=== PATIENT | female | born 1980 | race Caucasian/White ===

== ENCOUNTER 2016-10-27 19:13 | Inpatient (IN) | payer MEDICAID ==
[~2016-10-27] VITALS: Ht 165.1 cm; Wt 83.7 kg
[~2016-10-27 19:13] MED LIST: CALC200T10 PO; FOLI-17 PO; GEMF600T3 PO; GUAI5SYR PO; LEVO500T8 PO; LORA-446 PO; METR500T PO; PHOS250T3 PO; THIA100T6 PO; TRAM50TA2 PO
[2016-10-27] MEDS ORDERED: SODIUM CHLORIDE FLUSH 10ML SYR IVF ONE ×2 (20:00→21:30)
[2016-10-27 20:09] LABS: ASPARTATE AMINO TRANSFERASE 206 U/L (15-37); BLOOD UREA NITROGEN 8 mg/dL (7-18)
[2016-10-27 20:55] LABS: DIFF TOTAL CELLS COUNTED 100 CELL DIFF
[2016-10-27] MEDS ORDERED: SODIUM BICARBONATE 4.2%, 5ML ONE (20:58)
[2016-10-27] MEDS ORDERED: LIDOCAINE 1%, 20ML ONE (20:58)
[2016-10-27 20:59] LABS: ANISOCYTOSIS 1+; POLYCHROMASIA 1+
[2016-10-27 21:01] LABS: LARGE PLATELETS 1+; MONOS WITH VACUOLES 1+
[2016-10-27 21:02] LABS: VERIFY COUNTS? YES
[2016-10-27 21:15] LABS: ICTOTEST POSITIVE
[2016-10-27] MEDS ORDERED: SODIUM CHLORIDE 0.9% 1,000 ML IV ONE (21:21)
[2016-10-27] MEDS ORDERED: CEFTRIAXONE PMX 1GM/50ML 50 ML IVPB ONE (21:30)
[2016-10-27] MEDS ORDERED: SODIUM CHLORIDE 0.9% 1,000ML IVBOLUS ONE (21:30)
[2016-10-27] MEDS ORDERED: CEFTRIAXONE PMX 1GM/50ML 50 ML ONE (22:43)
[2016-10-27] MEDS ORDERED: POLYETHYLENE GLYCOL 17 GM PACKET PO PRN (23:00)
[2016-10-27] MEDS ORDERED: PHYTONADIONE 10 MG in SODIUM CHLORIDE 0.9% 50 ML IV ONE (23:00)
[2016-10-27] MEDS ORDERED: LABETALOL 5MG/ML, 20ML IV PRN (23:00)
[2016-10-27] MEDS ORDERED: BISACODYL 10 MG SUPP PR PRN (23:00)
[2016-10-27] MEDS ORDERED: DOCUSATE 100 MG CAPSULE PO PRN (23:00)
[2016-10-27] MEDS ORDERED: HEPARIN 5,000 UNITS/ML, 1ML SQ SCH (23:00)
[2016-10-28] MEDS: CEFTRIAXONE PMX 2GM/50ML 50 ML IV SCH ×2 (01:49→22:42)
[2016-10-28] MEDS: prednisOLONE 15 MG/5 ML ORAL SOLN PO SCH ×2 (01:50→07:50)
[2016-10-28] MEDS: HEPARIN 5,000 UNITS/ML, 1ML SQ SCH ×3 (01:50→17:14)
[2016-10-28] MEDS: NS + 20MEQ KCL 1,000 ML IV SCH ×4 (01:50→19:44)
[2016-10-28 02:06] VITALS: BP 101/63
[2016-10-28] MEDS: ONDANSETRON ODT 4 MG PO PRN ×2 (03:09→16:11)
[2016-10-28 03:10] VITALS: BP 104/74
[2016-10-28] MEDS ORDERED: OXYcodone IR 5MG TABLET PO PRN (03:30)
[2016-10-28 05:39] LABS: HEMOGLOBIN 11.5 g/dL (11.7-16.4)
[2016-10-28 06:19] LABS: ASPARTATE AMINO TRANSFERASE 169 U/L (15-37); BLOOD UREA NITROGEN 8 mg/dL (7-18)
[2016-10-28 07:16] VITALS: BP 106/70
[2016-10-28 07:17] LABS: DIFF TOTAL CELLS COUNTED 100 CELL DIFF
[2016-10-28 07:19] LABS: ANISOCYTOSIS 1+; POLYCHROMASIA 1+; VERIFY COUNTS? YES
[2016-10-28] MEDS: FOLIC ACID 1 MG TABLET PO SCH (07:50)
[2016-10-28] MEDS: THIAMINE 100MG TABLET PO SCH (07:50)
[2016-10-28 09:39] LABS: HEPATITIS C VIRUS ANTIBODY Nonreactive (Nonreactive)
[2016-10-28] MEDS ORDERED: POTASSIUM CHLORIDE 10% 40 MEQ/30 ML UDC PO ONE (10:00)
[2016-10-28 12:30] VITALS: BP 105/66
[2016-10-28 12:48] LABS: CELLS COUNTED 24; DILUTION 1; WBC SQUARES COUNTED 3
[2016-10-28 20:02] VITALS: BP 110/72
[2016-10-28] MEDS: TRAZODONE 50MG TABLET PO PRN (23:14)
[2016-10-29] MEDS ORDERED: LABETALOL 5MG/ML, 20ML IV PRN (01:31)
[2016-10-29] MEDS: NS + 20MEQ KCL 1,000 ML IV SCH ×4 (02:00→20:28)
[2016-10-29] MEDS: HEPARIN 5,000 UNITS/ML, 1ML SQ SCH ×3 (02:06→17:52)
[2016-10-29 05:16] VITALS: BP 105/68
[2016-10-29 05:28] LABS: BLOOD UREA NITROGEN 10 mg/dL (7-18)
[2016-10-29 05:30] LABS: HEMOGLOBIN 11.5 g/dL (11.7-16.4)
[2016-10-29 05:32] LABS: ASPARTATE AMINO TRANSFERASE 85 U/L (15-37)
[2016-10-29 06:01] LABS: DIFF TOTAL CELLS COUNTED 100 CELL DIFF
[2016-10-29 06:03] LABS: ANISOCYTOSIS 1+; VERIFY COUNTS? YES
[2016-10-29 06:04] LABS: POLYCHROMASIA 1+
[2016-10-29 06:55] VITALS: BP 110/73
[2016-10-29] MEDS: prednisOLONE 15 MG/5 ML ORAL SOLN PO SCH (08:00)
[2016-10-29] MEDS: THIAMINE 100MG TABLET PO SCH (08:04)
[2016-10-29] MEDS: FOLIC ACID 1 MG TABLET PO SCH (08:04)
[2016-10-29 12:30] VITALS: BP 106/72
[2016-10-29] MEDS ORDERED: OXYcodone IR 5MG TABLET PO PRN (14:57)
[2016-10-29] MEDS ORDERED: MORPHINE SULFATE 4 MG/ML, 1ML IVPush PRN (15:00)
[2016-10-29] MEDS ORDERED: ONDANSETRON 2MG/ML, 2ML IVPush PRN (15:00)
[2016-10-29] MEDS ORDERED: OXYcodone/APAP 5/325MG TABLET PO PRN (15:00)
[2016-10-29 19:30] VITALS: BP 104/69
[2016-10-29] MEDS: TRAZODONE 50MG TABLET PO PRN (23:20)
[2016-10-29] MEDS: CEFTRIAXONE PMX 2GM/50ML 50 ML IV SCH (23:20)
[2016-10-30 00:27] VITALS: BP 100/67
[2016-10-30] MEDS: NS + 20MEQ KCL 1,000 ML IV SCH (02:50)
[2016-10-30] MEDS: HEPARIN 5,000 UNITS/ML, 1ML SQ SCH ×3 (02:50→18:11)
[2016-10-30 06:30] VITALS: BP 96/62
[2016-10-30 06:59] LABS: HEMOGLOBIN 11.5 g/dL (11.7-16.4)
[2016-10-30 07:02] LABS: ASPARTATE AMINO TRANSFERASE 123 U/L (15-37); BLOOD UREA NITROGEN 11 mg/dL (7-18)
[2016-10-30 07:25] LABS: DIFF TOTAL CELLS COUNTED 100 CELL DIFF
[2016-10-30 07:27] LABS: ANISOCYTOSIS 1+; TARGET CELLS 1+; VERIFY COUNTS? YES
[2016-10-30 07:28] LABS: OVALOCYTES 1+
[2016-10-30] MEDS: THIAMINE 100MG TABLET PO SCH (08:04)
[2016-10-30] MEDS: FOLIC ACID 1 MG TABLET PO SCH (08:04)
[2016-10-30 12:55] VITALS: BP 109/73
[2016-10-30 18:44] VITALS: BP 116/75
[2016-10-30] MEDS: CEFTRIAXONE PMX 2GM/50ML 50 ML IV SCH (22:47)
[2016-10-30] MEDS: TRAZODONE 50MG TABLET PO PRN (22:47)
[2016-10-31 01:17] VITALS: BP 119/70
[2016-10-31] MEDS: HEPARIN 5,000 UNITS/ML, 1ML SQ SCH ×2 (01:29→09:02)
[2016-10-31 06:03] LABS: BLOOD UREA NITROGEN 8 mg/dL (7-18)
[2016-10-31 06:06] LABS: ASPARTATE AMINO TRANSFERASE 209 U/L (15-37)
[2016-10-31 06:34] VITALS: BP 99/62
[2016-10-31] MEDS ORDERED: FURO20TA3 PO (08:42)
[2016-10-31] MEDS ORDERED: SPIR25TA PO (08:42)
[2016-10-31] MEDS ORDERED: TRAZ50TA18 PO (08:42)
[2016-10-31] MEDS ORDERED: CEFD300C2 PO (08:43)
[2016-10-31] MEDS: THIAMINE 100MG TABLET PO SCH (08:59)
[2016-10-31] MEDS: FOLIC ACID 1 MG TABLET PO SCH (08:59)
[2016-10-31] MEDS ORDERED: SPIRONOLACTONE 25 MG TABLET PO SCH (09:00)
[2016-10-31] MEDS ORDERED: FUROSEMIDE 20 MG TABLET PO SCH (09:00)
[2016-10-31] MEDS ORDERED: LIDOCAINE 1%, 20ML ONE (09:37)
[2016-10-31] MEDS ORDERED: SODIUM BICARBONATE 4.2%, 5ML ONE (09:37)
[2016-10-31 10:56] LABS: CYTOLOGY BODY FLUID RECD INTO PATHOLOGY; CYTOLOGY BODY FLUID SOURCE ASCITES FLUID
[2016-10-31 12:34] VITALS: BP 107/77
[2016-10-31 12:42] VITALS: BP 114/78
[2016-10-31 16:58] LABS: ANA SCREEN NEGATIVE (Negative)
[2016-10-31 17:06] LABS: HEPATITIS C PCR QUANTITATION HCV Not Detected IU/mL (.)
== END 2016-10-31 15:28 | disposition home or self-care (01) | DRG 871 ==
LOC: ED 19:41 → EDIP 22:16 → 4EST 23:24 → DCLOUNGE 10-31 14:57
PROVIDERS: ADMIT Internal Medicine; ATTEND Internal Medicine
PROC: 0T9B70Z Drainage of Bladder with Drainage Device, Via Natural or Artificial Opening (ICD-10-PCS; 2016-10-27)
PROC: 0W9G3ZZ Drainage of Peritoneal Cavity, Percutaneous Approach (ICD-10-PCS; principal; 2016-10-28)
PROC: 0W9G3ZZ Drainage of Peritoneal Cavity, Percutaneous Approach (ICD-10-PCS; 2016-10-31)
DX: A41.9 Sepsis, unspecified organism (principal); K85.90 Acute pancreatitis without necrosis or infection, unspecified; D68.4 Acquired coagulation factor deficiency; N17.9 Acute kidney failure, unspecified; E87.1 Hypo-osmolality and hyponatremia; N10 Acute pyelonephritis; K70.31 Alcoholic cirrhosis of liver with ascites; K70.11 Alcoholic hepatitis with ascites; E87.6 Hypokalemia; E88.09 Other disorders of plasma-protein metabolism, not elsewhere classified; F41.9 Anxiety disorder, unspecified; Z83.3 Family history of diabetes mellitus; Z98.51 Tubal ligation status
CPT/HCPCS: 36415; 49083; 71010; 74020; 76700; 80053; 80074; 80307; 81001; 82042; 82103; 82140; 82247; 82248; 82390; 83516; 83605; 83615; 83690; 83735; 84145; 84439; 84443; 84703; 85025; 85610; 85730; 86038; 86376; 87040; 87070; 87086; 87205; 87522; 88112; 88305; 89051; 93005; 99291; J0696; J1644; J3430; J3480; J3490; Q0162; J7030; J7510

== ENCOUNTER 2017-01-29 09:36 | Inpatient (IN) | payer MEDICAID ==
[~2017-01-29] VITALS: Ht 160 cm; Wt 67.5 kg
[~2017-01-29 09:36] MED LIST changes: +CEFD300C37 PO; +FURO20TA3 PO; +SPIR25TA PO; +TRAZ50TA18 PO
[2017-01-29] MEDS ORDERED: PANTOPRAZOLE 80 MG in SODIUM CHLORIDE 0.9% 100 ML IV SCH (09:56)
[2017-01-29] MEDS ORDERED: SODIUM CHLORIDE 0.9% 1,000 ML IV ONE (09:56)
[2017-01-29] MEDS ORDERED: PANTOPRAZOLE 80 MG in SODIUM CHLORIDE 0.9% 50 ML IVPB ONE (09:56)
[2017-01-29] MEDS ORDERED: SODIUM CHLORIDE FLUSH 10ML SYR IVF ONE (10:00)
[2017-01-29] MEDS ORDERED: SODIUM CHLORIDE 0.9% 1,000ML IVBOLUS ONE ×2 (10:00→11:30)
[2017-01-29] MEDS ORDERED: LORazepam 2 MG/ML, 1ML ONE ×2 (10:16→12:44)
[2017-01-29] MEDS ORDERED: ONDANSETRON 2MG/ML, 2ML ONE ×3 (10:26→15:03)
[2017-01-29] MEDS ORDERED: PLEASE ENTER HEIGHT AND WEIGHT MC SCH (10:30)
[2017-01-29] MEDS ORDERED: LORazepam 2 MG/ML, 1ML IVPush ONE (10:30)
[2017-01-29 10:34] LABS: ASPARTATE AMINO TRANSFERASE 67 U/L (15-37); BLOOD UREA NITROGEN 13 mg/dL (7-18)
[2017-01-29 10:42] LABS: ANISOCYTOSIS 1+; OVALOCYTES 1+
[2017-01-29] MEDS ORDERED: SODIUM CHLORIDE 0.9% 1,000 ML IV SCH (12:26)
[2017-01-29] MEDS ORDERED: morphine SULFATE 10 MG/ML, 1ML IVPush PRN (12:30)
[2017-01-29] MEDS ORDERED: PROMETHAZINE 25 MG/ML, 1ML IM PRN (12:30)
[2017-01-29] MEDS: ONDANSETRON 2MG/ML, 2ML IVPush PRN ×2 (12:47→21:15)
[2017-01-29] MEDS: LORazepam 2 MG/ML, 1ML IVPush PRN ×2 (12:48→18:09)
[2017-01-29] MEDS: NS + 20MEQ KCL 1,000 ML IV SCH ×2 (13:00→17:22)
[2017-01-29 14:06] VITALS: BP 107/68
[2017-01-29 14:25] VITALS: BP 107/68
[2017-01-29] MEDS ORDERED: OCTREOTIDE 50 MCG/ML, 1ML (0.05MG/ML) IVPush ONE (14:30)
[2017-01-29] MEDS ORDERED: OCTREOTIDE 500 MCG in SODIUM CHLORIDE 0.9% 249 ML IV SCH (15:00)
[2017-01-29] MEDS ORDERED: OCTREOTIDE 100MCG/ML, 1ML (0.1MG/ML) IV ONE (15:00)
[2017-01-29] MEDS: CIPROFLOXACIN/PMX 400MG/200ML 200 ML IV SCH (15:00)
[2017-01-29] MEDS ORDERED: PROPOFOL 10 MG/ML, 20ML ONE (15:03)
[2017-01-29 16:52] VITALS: BP 115/58
[2017-01-30] MEDS: LORazepam 2 MG/ML, 1ML IVPush PRN ×3 (00:06→20:44)
[2017-01-30 01:13] VITALS: BP 108/69
[2017-01-30] MEDS: NS + 20MEQ KCL 1,000 ML IV SCH (01:26)
[2017-01-30] MEDS: CIPROFLOXACIN/PMX 400MG/200ML 200 ML IV SCH ×2 (02:06→15:08)
[2017-01-30 06:11] LABS: BLOOD UREA NITROGEN 7 mg/dL (7-18)
[2017-01-30 06:24] LABS: ASPARTATE AMINO TRANSFERASE 129 U/L (15-37)
[2017-01-30 07:28] VITALS: BP 110/72
[2017-01-30] MEDS: THIAMINE 100MG TABLET PO SCH (08:26)
[2017-01-30] MEDS: OMEPRAZOLE 20 MG CAPSULE.DR PO SCH (08:26)
[2017-01-30] MEDS: FOLIC ACID 1 MG TABLET PO SCH (08:26)
[2017-01-30] MEDS ORDERED: MAGNESIUM SULFATE PMX 2GM/50ML 50 ML IV STA (08:46)
[2017-01-30] MEDS ORDERED: POTASSIUM CHLORIDE 20 MEQ TAB.ER.PRT PO ONE (10:00)
[2017-01-30] MEDS ORDERED: POTASSIUM PHOSPHATE 44 MEQ in SODIUM CHLORIDE 0.9% 500 ML IV ONE (10:00)
[2017-01-30] MEDS ORDERED: SODIUM CHLORIDE 0.9% 1,000 ML IV SCH (12:00)
[2017-01-30] MEDS: ONDANSETRON 2MG/ML, 2ML IVPush PRN (12:54)
[2017-01-30] MEDS: CHOLECALCIFEROL 1,000 UNIT TABLET PO SCH (13:04)
[2017-01-30 14:50] VITALS: BP 106/70
[2017-01-30 19:15] VITALS: BP 118/77
[2017-01-31 01:52] VITALS: BP 95/60
[2017-01-31] MEDS: CIPROFLOXACIN/PMX 400MG/200ML 200 ML IV SCH ×2 (02:43→16:49)
[2017-01-31] MEDS: ONDANSETRON 2MG/ML, 2ML IVPush PRN (04:47)
[2017-01-31 06:08] LABS: BLOOD UREA NITROGEN 3 mg/dL (7-18)
[2017-01-31] MEDS ORDERED: MAGNESIUM SULFATE PMX 4GM/100M 100 ML IV STA (07:15)
[2017-01-31 08:05] VITALS: BP 99/63
[2017-01-31] MEDS ORDERED: CALCIUM GLUCONATE 4.6 MEQ in SODIUM CHLORIDE 0.9% 100 ML IV ONE ×2 (09:00→11:00)
[2017-01-31] MEDS ORDERED: CALCIUM GLUCONATE 0.46MEQ/1ML IVPush ONE (09:00)
[2017-01-31] MEDS: THIAMINE 100MG TABLET PO SCH (09:57)
[2017-01-31] MEDS: FOLIC ACID 1 MG TABLET PO SCH (09:57)
[2017-01-31] MEDS: CHOLECALCIFEROL 1,000 UNIT TABLET PO SCH (09:57)
[2017-01-31] MEDS: OMEPRAZOLE 20 MG CAPSULE.DR PO SCH (09:58)
[2017-01-31] MEDS: LORazepam 2 MG/ML, 1ML IVPush PRN ×2 (11:09→20:22)
[2017-01-31 13:09] VITALS: BP 117/75
[2017-01-31 20:00] VITALS: BP 109/68
[2017-02-01 00:35] VITALS: BP 106/65
[2017-02-01] MEDS: CIPROFLOXACIN/PMX 400MG/200ML 200 ML IV SCH (03:43)
[2017-02-01 05:36] LABS: BLOOD UREA NITROGEN 1 mg/dL (7-18)
[2017-02-01 08:39] VITALS: BP 107/72
[2017-02-01] MEDS: FOLIC ACID 1 MG TABLET PO SCH (08:42)
[2017-02-01] MEDS: THIAMINE 100MG TABLET PO SCH (08:42)
[2017-02-01] MEDS: CHOLECALCIFEROL 1,000 UNIT TABLET PO SCH (08:42)
[2017-02-01] MEDS: OMEPRAZOLE 20 MG CAPSULE.DR PO SCH (08:42)
[2017-02-01] MEDS: LORazepam 2 MG/ML, 1ML IVPush PRN (09:00)
[2017-02-01] MEDS ORDERED: MAGNESIUM SULFATE PMX 4GM/100M 100 ML IV ONE (10:00)
[2017-02-01] MEDS ORDERED: CALCIUM GLUCONATE 0.46MEQ/1ML IVPush ONE (10:00)
[2017-02-01] MEDS ORDERED: POTASSIUM CHLORIDE 20 MEQ TAB.ER.PRT PO ONE (10:30)
[2017-02-01] MEDS ORDERED: CALCIUM GLUCONATE 4.6 MEQ in SODIUM CHLORIDE 0.9% 50 ML IV ONE (10:30)
[2017-02-01 12:07] LABS: TOTAL IRON BINDING CAPACITY 169 mcg/dL (250-450)
[2017-02-01 14:52] VITALS: BP 109/70
[2017-02-01] MEDS ORDERED: IRON DEXTRAN IV PER PHARMACY IV ONE (15:00)
[2017-02-01] MEDS ORDERED: IRON DEXTRAN COMPLEX 25 MG in SODIUM CHLORIDE 0.9% 50 ML IV ONE (16:00)
[2017-02-01] MEDS ORDERED: EPINEPHRINE SYRINGE 0.1 MG/ML, 10ML ONE (16:19)
[2017-02-01] MEDS ORDERED: IRON DEXTRAN COMPLEX 1,350 MG in SODIUM CHLORIDE 0.9% 250 ML IV ONE (17:00)
[2017-02-02] MEDS ORDERED: FERROUS GLUCONATE 324 MG TABLET PO SCH (08:00)
== END 2017-02-01 17:16 | disposition left against medical advice (07) | DRG 378 ==
LOC: ED 11:17 → EDIP 12:26 → 4WST 14:22
PROVIDERS: ADMIT Internal Medicine; ATTEND Internal Medicine
PROC: 0DJ08ZZ Inspection of Upper Intestinal Tract, Via Natural or Artificial Opening Endoscopic (ICD-10-PCS; principal; 2017-01-29 14:30)
DX: K92.1 Melena (principal); D62 Acute posthemorrhagic anemia; D68.9 Coagulation defect, unspecified; E87.2 Acidosis; K21.0 Gastro-esophageal reflux disease with esophagitis; I85.00 Esophageal varices without bleeding; F41.9 Anxiety disorder, unspecified; Z87.19 Personal history of other diseases of the digestive system; Z82.49 Family history of ischemic heart disease and other diseases of the circulatory system; Z98.51 Tubal ligation status; Z88.5 Allergy status to narcotic agent; E87.6 Hypokalemia; Z86.718 Personal history of other venous thrombosis and embolism; K70.9 Alcoholic liver disease, unspecified; Z79.899 Other long term (current) drug therapy
CPT/HCPCS: 36415; 80048; 80053; 83540; 83550; 83605; 83690; 83735; 84100; 84443; 84703; 85014; 85018; 85025; 85379; 85610; 85730; 86677; 86850; 86900; 93005; 96361; 96365; 96366; 96375; J0744; J2354; J2405; J2550; J2704; J3480; C9113; J0610; J2060; J2270; J3475; J7030; J7040

== ENCOUNTER 2017-02-23 09:26 | Inpatient (IN) | payer MEDICAID ==
[2017-02-23] VITALS (16 sets, daily range): BP systolic 93–116; BP diastolic 52–73
[~2017-02-23] VITALS: Ht 157.5 cm; Wt 61.8 kg
[2017-02-23] MEDS ORDERED: SODIUM CHLORIDE 0.9% 1,000 ML IV ONE (09:37)
[2017-02-23] MEDS ORDERED: SODIUM CHLORIDE 0.9% 1,000ML IVBOLUS ONE (10:00)
[2017-02-23] MEDS ORDERED: ONDANSETRON 2MG/ML, 2ML IVPush ONE (10:00)
[2017-02-23] MEDS ORDERED: SODIUM CHLORIDE FLUSH 10ML SYR IVF ONE (10:00)
[2017-02-23] MEDS ORDERED: ONDANSETRON 2MG/ML, 2ML ONE (10:18)
[2017-02-23] MEDS ORDERED: LORazepam 2 MG/ML, 1ML ONE ×2 (10:18→10:22)
[2017-02-23 10:20] LABS: BLOOD UREA NITROGEN 16 mg/dL (7-18)
[2017-02-23 10:22] LABS: ASPARTATE AMINO TRANSFERASE 61 U/L (15-37)
[2017-02-23] MEDS ORDERED: OCTREOTIDE 100MCG/ML, 1ML (0.1MG/ML) IV ONE (10:30)
[2017-02-23] MEDS ORDERED: LORazepam 2 MG/ML, 1ML IVPush ONE (10:30)
[2017-02-23] MEDS ORDERED: PANTOPRAZOLE 80 MG in SODIUM CHLORIDE 0.9% 50 ML IVPB ONE (11:00)
[2017-02-23] MEDS: PANTOPRAZOLE 80 MG in SODIUM CHLORIDE 0.9% 100 ML IV SCH ×5 (11:00→22:21)
[2017-02-23] MEDS: FUROSEMIDE 20 MG TABLET PO SCH (12:30)
[2017-02-23] MEDS ORDERED: SODIUM CHLORIDE FLUSH 10ML SYR IVF PRN (12:30)
[2017-02-23] MEDS: OCTREOTIDE 500 MCG in SODIUM CHLORIDE 0.9% 249 ML IV SCH ×2 (12:30→22:21)
[2017-02-23] MEDS ORDERED: morphine SULFATE 10 MG/ML, 1ML IVPush PRN (13:00)
[2017-02-23] MEDS ORDERED: ONDANSETRON 2MG/ML, 2ML IVPush PRN (13:00)
[2017-02-23] MEDS ORDERED: ENALAPRILAT 1.25 MG/ML, 2ML IVPush PRN (13:00)
[2017-02-23] MEDS ORDERED: OXYcodone IR 5MG TABLET PO PRN (13:00)
[2017-02-23] MEDS: OCTREOTIDE 500 MCG in SODIUM CHLORIDE 0.9% 249 ML IV PRN ×2 (13:50→13:58)
[2017-02-23] MEDS: FERROUS SULFATE 325 MG TABLET PO SCH (14:07)
[2017-02-23] MEDS: SPIRONOLACTONE 25 MG TABLET PO SCH (17:29)
[2017-02-23] MEDS ORDERED: ACETAMINOPHEN 650 MG SUPP PR PRN (19:30)
[2017-02-23] MEDS: SODIUM CHLORIDE 0.9% 1,000 ML IV SCH (20:08)
[2017-02-23] MEDS: CEFTRIAXONE PMX 2GM/50ML 50 ML IV SCH (20:24)
[2017-02-24 03:30] VITALS: BP 116/73
[2017-02-24 05:29] LABS: ASPARTATE AMINO TRANSFERASE 55 U/L (15-37); BLOOD UREA NITROGEN 11 mg/dL (7-18)
[2017-02-24] MEDS: FERROUS SULFATE 325 MG TABLET PO SCH ×2 (08:00→20:09)
[2017-02-24 08:12] VITALS: BP 113/71
[2017-02-24] MEDS ORDERED: MIDAZOLAM 1 MG/ML, 2ML ONE (08:28)
[2017-02-24] MEDS ORDERED: FENTANYL PF 100 MCG/2ML ONE (08:28)
[2017-02-24] MEDS ORDERED: PROPOFOL 10 MG/ML, 20ML ONE (08:46)
[2017-02-24] MEDS ORDERED: LIDOCAINE 2%, 10ML ONE (08:46)
[2017-02-24] MEDS ORDERED: MIDAZOLAM 1 MG/ML, 2ML IV PRN (09:00)
[2017-02-24] MEDS ORDERED: PROMETHAZINE 25 MG/ML, 1ML IV PRN (09:00)
[2017-02-24] MEDS ORDERED: ONDANSETRON 2MG/ML, 2ML IVPush PRN (09:00)
[2017-02-24] MEDS ORDERED: FENTANYL PF 100 MCG/2ML IV PRN (09:00)
[2017-02-24] MEDS ORDERED: METOPROLOL 1 MG/ML, 5ML IV PRN (09:00)
[2017-02-24] MEDS: FUROSEMIDE 20 MG TABLET PO SCH (09:00)
[2017-02-24] MEDS ORDERED: HYDROmorphone 1 MG/ML, 1ML IV PRN (09:00)
[2017-02-24] MEDS: SPIRONOLACTONE 25 MG TABLET PO SCH ×2 (09:00→20:09)
[2017-02-24] MEDS ORDERED: OXYcodone 5 MG/5 ML ORAL.SOL UDC PO PRN (09:00)
[2017-02-24] MEDS ORDERED: hydrALAzine 20 MG/ML, 1ML IV PRN (09:00)
[2017-02-24] MEDS ORDERED: ONDANSETRON 2MG/ML, 2ML ONE (09:19)
[2017-02-24] MEDS ORDERED: MAGNESIUM SULFATE PMX 2GM/50ML 50 ML IV ONE (11:30)
[2017-02-24 12:20] VITALS: BP 113/78
[2017-02-24] MEDS: SODIUM CHLORIDE 0.9% 1,000 ML IV SCH (12:33)
[2017-02-24] MEDS: OMEPRAZOLE 20 MG CAPSULE.DR PO SCH (12:33)
[2017-02-24] MEDS ORDERED: POTASSIUM CHLORIDE 40 MEQ in SODIUM CHLORIDE 0.9% 500 ML IV ONE (14:00)
[2017-02-24 19:44] VITALS: BP 117/71
[2017-02-24] MEDS: CEFTRIAXONE PMX 2GM/50ML 50 ML IV SCH (20:08)
[2017-02-25 01:29] VITALS: BP 122/70
[2017-02-25] MEDS: SODIUM CHLORIDE 0.9% 1,000 ML IV SCH (08:00)
[2017-02-25 08:30] VITALS: BP 120/76
[2017-02-25] MEDS: FUROSEMIDE 20 MG TABLET PO SCH (09:59)
[2017-02-25] MEDS: FERROUS SULFATE 325 MG TABLET PO SCH (09:59)
[2017-02-25] MEDS: SPIRONOLACTONE 25 MG TABLET PO SCH (09:59)
[2017-02-25] MEDS: OMEPRAZOLE 20 MG CAPSULE.DR PO SCH (09:59)
[2017-02-25 10:40] LABS: ASPARTATE AMINO TRANSFERASE 114 U/L (15-37); BLOOD UREA NITROGEN 4 mg/dL (7-18)
[2017-02-25] MEDS ORDERED: ERGOCALCIFEROL 50,000 UNIT CAPSULE PO SCH (12:00)
[2017-02-25] MEDS ORDERED: MAGNESIUM CHLORIDE 64 MG TABLET.DR PO SCH (12:00)
[2017-02-25] MEDS ORDERED: MAGN64TA9 PO (12:08)
[2017-02-25] MEDS ORDERED: FERR325T20 PO (12:08)
[2017-02-25] MEDS ORDERED: OMEP-110 PO (12:08)
[2017-02-25] MEDS ORDERED: ERGO500017 PO (12:08)
== END 2017-02-25 15:00 | disposition home or self-care (01) | DRG 377 ==
LOC: ED 10:17 → SUATTDRO 11:53 → EDIP 12:08 → 4WST 13:00
PROVIDERS: ADMIT Internal Medicine; ATTEND Internal Medicine
PROC: 30233L1 Transfusion of Nonautologous Fresh Plasma into Peripheral Vein, Percutaneous Approach (ICD-10-PCS; principal; 2017-02-23)
PROC: 30233N1 Transfusion of Nonautologous Red Blood Cells into Peripheral Vein, Percutaneous Approach (ICD-10-PCS; 2017-02-23)
PROC: 30233K1 Transfusion of Nonautologous Frozen Plasma into Peripheral Vein, Percutaneous Approach (ICD-10-PCS; 2017-02-23)
DX: K92.2 Gastrointestinal hemorrhage, unspecified (principal); E43 Unspecified severe protein-calorie malnutrition; I81 Portal vein thrombosis; D68.9 Coagulation defect, unspecified; D62 Acute posthemorrhagic anemia; I85.00 Esophageal varices without bleeding; K70.30 Alcoholic cirrhosis of liver without ascites; E88.09 Other disorders of plasma-protein metabolism, not elsewhere classified; D50.9 Iron deficiency anemia, unspecified; F41.9 Anxiety disorder, unspecified; K21.0 Gastro-esophageal reflux disease with esophagitis; E55.9 Vitamin D deficiency, unspecified; Z98.51 Tubal ligation status; Z80.1 Family history of malignant neoplasm of trachea, bronchus and lung; Z82.49 Family history of ischemic heart disease and other diseases of the circulatory system; Z88.5 Allergy status to narcotic agent
CPT/HCPCS: 36415; 74020; 80053; 82306; 83690; 83735; 84100; 85025; 85610; 85730; 86850; 86900; 86923; 96374; 96375; J0696; J2250; J2354; J2405; J2704; J3010; J3480; J3490; C9113; J2060; J3475; J7030; J7040; J7050; P9016; P9017

== ENCOUNTER 2017-05-04 00:30 | Inpatient (IN) | payer MEDICAID, OTHER ==
[~2017-05-04] VITALS: Ht 165.1 cm; Wt 60.1 kg
[~2017-05-04 00:30] MED LIST changes: -CALC200T10 PO; +CALC200T56 PO; +ERGO500017 PO; +FERR325T18 PO; +MAGN64TA9 PO; +OMEP-110 PO
[2017-05-04] MEDS ORDERED: PANTOPRAZOLE 80 MG in SODIUM CHLORIDE 0.9% 100 ML IV SCH (00:38)
[2017-05-04] MEDS ORDERED: PANTOPRAZOLE 80 MG in SODIUM CHLORIDE 0.9% 50 ML IVPB ONE ×2 (00:38→02:52)
[2017-05-04] MEDS ORDERED: OCTREOTIDE 500 MCG in SODIUM CHLORIDE 0.9% 249 ML IV PRN (00:38)
[2017-05-04 00:57] LABS: HEMOGLOBIN 9.1 g/dL (11.7-16.4); WHITE BLOOD COUNT 14.3 x10^3/uL (3.4-10)
[2017-05-04] MEDS ORDERED: ONDANSETRON 2MG/ML, 2ML ONE (00:57)
[2017-05-04] MEDS ORDERED: ONDANSETRON 2MG/ML, 2ML IVPush ONE (01:00)
[2017-05-04] MEDS ORDERED: SODIUM CHLORIDE 0.9% 1,000ML IVBOLUS ONE (01:00)
[2017-05-04 01:07] LABS: BLOOD UREA NITROGEN 15 mg/dL (7-18)
[2017-05-04 01:08] LABS: ASPARTATE AMINO TRANSFERASE 39 U/L (15-37)
[2017-05-04] MEDS ORDERED: PROCHLORPERAZINE 5 MG/ML, 2ML ONE (02:13)
[2017-05-04] MEDS ORDERED: METOCLOPRAMIDE 5 MG/ML, 2ML ONE (02:13)
[2017-05-04] MEDS ORDERED: DIPHENHYDRAMINE 50 MG/ML, 1ML ONE (02:14)
[2017-05-04] MEDS ORDERED: DIPHENHYDRAMINE 50 MG/ML, 1ML IVPush ONE (02:30)
[2017-05-04] MEDS ORDERED: METOCLOPRAMIDE 5 MG/ML, 2ML IVPush ONE (02:30)
[2017-05-04] MEDS: SODIUM CHLORIDE 0.9% 1,000 ML IV SCH ×3 (02:36→23:26)
[2017-05-04] MEDS ORDERED: LORazepam 2 MG/ML, 1ML ONE (02:40)
[2017-05-04] MEDS: PANTOPRAZOLE 80 MG in SODIUM CHLORIDE 0.9% 100 ML IV SCH ×2 (02:52→12:02)
[2017-05-04] MEDS: OCTREOTIDE 500 MCG in DEXTROSE 5% 249 ML IV SCH ×3 (02:52→22:30)
[2017-05-04] MEDS ORDERED: OCTREOTIDE 50 MCG/ML, 1ML (0.05MG/ML) IV ONE (03:00)
[2017-05-04] MEDS ORDERED: LORazepam 2 MG/ML, 1ML IV PRN (03:00)
[2017-05-04] MEDS ORDERED: LORazepam 2 MG/ML, 1ML IVPush ONE (03:00)
[2017-05-04] MEDS ORDERED: hydrALAzine 20 MG/ML, 1ML IVPush PRN (03:00)
[2017-05-04 03:07] LABS: HEMOGLOBIN 7.8 g/dL (11.7-16.4)
[2017-05-04 03:08] LABS: HEMATOCRIT 22.9 % (34.6-47.8)
[2017-05-04] MEDS: POTASSIUM CHLORIDE 20 MEQ, MAGNESIUM SULFATE 2 GM, THIAMINE 100 MG, MVI ADULT 10 ML, FO... IV SCH ×2 (03:44→04:52)
[2017-05-04 05:00] VITALS: BP 103/48
[2017-05-04] MEDS ORDERED: PANTOPRAZOLE 40 MG IV IVPush SCH (07:30)
[2017-05-04] MEDS: ONDANSETRON 2MG/ML, 2ML IV PRN (07:57)
[2017-05-04] MEDS ORDERED: PROMETHAZINE 25 MG/ML, 1ML IM PRN (08:30)
[2017-05-04] MEDS ORDERED: PHYTONADIONE 10 MG/ML, 1ML SQ ONE (08:30)
[2017-05-04 09:23] LABS: HEMOGLOBIN 7.2 g/dL (11.7-16.4)
[2017-05-04] MEDS: CEFTRIAXONE PMX 2GM/50ML 50 ML IV SCH (09:24)
[2017-05-04 09:25] LABS: HEMATOCRIT 21.4 % (34.6-47.8)
[2017-05-04] MEDS ORDERED: MIDAZOLAM 1 MG/ML, 5ML ONE (12:05)
[2017-05-04] MEDS ORDERED: FENTANYL PF 100 MCG/2ML ONE (12:05)
[2017-05-04 12:32] VITALS: BP 117/40
[2017-05-04 12:45] VITALS: BP 113/79
[2017-05-04 14:55] VITALS: BP 107/68
[2017-05-04 15:48] LABS: HEMATOCRIT 25.4 % (34.6-47.8); HEMOGLOBIN 8.4 g/dL (11.7-16.4)
[2017-05-04] MEDS ORDERED: LIDOCAINE 2%, 2ML ONE (18:09)
[2017-05-04] MEDS: PANTOPROZOLE 40MG TABLET PO SCH (18:52)
[2017-05-04 21:16] LABS: HEMATOCRIT 24.1 % (34.6-47.8); HEMOGLOBIN 8.1 g/dL (11.7-16.4)
[2017-05-04] MEDS ORDERED: HYDROmorphone 1 MG/ML, 1ML IV PRN (23:00)
[2017-05-05] MEDS: POTASSIUM CHLORIDE 20 MEQ, MAGNESIUM SULFATE 2 GM, THIAMINE 100 MG, MVI ADULT 10 ML, FO... IV SCH ×2 (00:28→09:24)
[2017-05-05 02:45] LABS: HEMOGLOBIN 7.4 g/dL (11.7-16.4); WHITE BLOOD COUNT 7.1 x10^3/uL (3.4-10)
[2017-05-05 02:50] LABS: HEMATOCRIT 22.2 % (34.6-47.8)
[2017-05-05 02:53] LABS: BLOOD UREA NITROGEN 8 mg/dL (7-18)
[2017-05-05 02:56] LABS: ASPARTATE AMINO TRANSFERASE 41 U/L (15-37)
[2017-05-05 04:00] VITALS: BP 104/72
[2017-05-05] MEDS: PANTOPROZOLE 40MG TABLET PO SCH ×2 (06:06→17:56)
[2017-05-05] MEDS: CEFTRIAXONE PMX 2GM/50ML 50 ML IV SCH (06:06)
[2017-05-05 08:23] LABS: HEMATOCRIT 23.2 % (34.6-47.8); HEMOGLOBIN 7.9 g/dL (11.7-16.4)
[2017-05-05] MEDS: ONDANSETRON 2MG/ML, 2ML IV PRN (10:09)
[2017-05-05] MEDS: OCTREOTIDE 500 MCG in DEXTROSE 5% 249 ML IV SCH (10:09)
[2017-05-05 20:11] VITALS: BP 118/76
[2017-05-06] MEDS: POTASSIUM CHLORIDE 20 MEQ, MAGNESIUM SULFATE 2 GM, THIAMINE 100 MG, MVI ADULT 10 ML, FO... IV SCH ×2 (01:25→10:46)
[2017-05-06 01:26] VITALS: BP 113/70
[2017-05-06] MEDS ORDERED: SODIUM CHLORIDE 0.9% 1,000 ML IV SCH (02:36)
[2017-05-06 05:52] LABS: BLOOD UREA NITROGEN 3 mg/dL (7-18)
[2017-05-06 05:53] LABS: HEMOGLOBIN 7.8 g/dL (11.7-16.4); WHITE BLOOD COUNT 6.9 x10^3/uL (3.4-10)
[2017-05-06 05:57] LABS: ASPARTATE AMINO TRANSFERASE 47 U/L (15-37)
[2017-05-06] MEDS: PANTOPROZOLE 40MG TABLET PO SCH (06:01)
[2017-05-06] MEDS: CEFTRIAXONE PMX 2GM/50ML 50 ML IV SCH (06:01)
[2017-05-06 06:32] LABS: DIFF TOTAL CELLS COUNTED 100 CELL DIFF
[2017-05-06 06:34] LABS: VERIFY COUNTS? YES
[2017-05-06 06:35] LABS: ANISOCYTOSIS 1+; OVALOCYTES 1+
[2017-05-06 06:36] LABS: POIKILOCYTOSIS 1+
[2017-05-06 06:46] VITALS: BP 128/72
[2017-05-06] MEDS: ONDANSETRON 2MG/ML, 2ML IV PRN (09:10)
[2017-05-06 12:50] VITALS: BP 123/83
[2017-05-06] MEDS ORDERED: MAGNESIUM OXIDE 400 MG TABLET PO ONE (13:30)
[2017-05-06] MEDS ORDERED: MAGNESIUM SULFATE PMX 4GM/100M 100 ML IV ONE (13:30)
[2017-05-06] MEDS ORDERED: PROP10TA PO (13:34)
[2017-05-06] MEDS ORDERED: PANT40TA5 PO (13:34)
[2017-05-06] MEDS ORDERED: ONDA4TAB10 PO (13:34)
[2017-05-06] MEDS: PROPRANOLOL 10 MG TABLET PO SCH ×2 (14:00→14:08)
== END 2017-05-06 15:25 | disposition home or self-care (01) | DRG 377 ==
LOC: ED 01:27 → EDIP 02:27 → CCU 04:43 → 4NOR 05-05 19:20
PROVIDERS: ADMIT Internal Medicine; ATTEND Internal Medicine
PROC: 0DJ68ZZ Inspection of Stomach, Via Natural or Artificial Opening Endoscopic (ICD-10-PCS; 2017-05-04)
PROC: 30233N1 Transfusion of Nonautologous Red Blood Cells into Peripheral Vein, Percutaneous Approach (ICD-10-PCS; principal; 2017-05-04 14:00)
DX: K25.4 Chronic or unspecified gastric ulcer with hemorrhage (principal); E43 Unspecified severe protein-calorie malnutrition; I81 Portal vein thrombosis; D68.4 Acquired coagulation factor deficiency; K76.6 Portal hypertension; K70.30 Alcoholic cirrhosis of liver without ascites; E83.42 Hypomagnesemia; D62 Acute posthemorrhagic anemia; F10.288 Alcohol dependence with other alcohol-induced disorder; K72.90 Hepatic failure, unspecified without coma; F10.21 Alcohol dependence, in remission; F41.9 Anxiety disorder, unspecified; K31.89 Other diseases of stomach and duodenum; K76.0 Fatty (change of) liver, not elsewhere classified; Z86.718 Personal history of other venous thrombosis and embolism; Z68.22 Body mass index [BMI] 22.0-22.9, adult; Z88.6 Allergy status to analgesic agent
CPT/HCPCS: 36415; 80053; 80307; 82140; 83690; 83735; 85014; 85018; 85025; 85610; 86677; 86850; 86900; 86923; 87081; 93005; 96365; 96375; 99152; 99153; J0696; J1170; J2250; J2354; J2405; J3010; J3411; J3430; J3475; J3480; J7042; J7060; C9113; G0479; J1200; J2060; J2765; J7030; J7050; P9016